=== PATIENT | male | born 1960 | race Caucasian/White ===

== ENCOUNTER 2017-11-25 12:56 | Emergency (ER) | payer MEDICAID ==
[2017-11-25] MEDS ORDERED: ALBUTEROL/IPRATROPIUM 1 VIAL SOL ONE (13:17)
[2017-11-25 13:33] VITALS: RESP 32
[2017-11-25 13:47] VITALS: BP 131/76
[2017-11-25] MEDS ORDERED: ALBUTEROL/IPRATROPIUM 1 VIAL SOL INH ONE (13:48)
[2017-11-25 14:05] VITALS: PULSE 102; TEMP 98.4; O2SAT 95
== END 2017-11-25 15:09 | disposition home or self-care (01) | DRG 206 ==
LOC: ED 12:56
DX: J95.09 Other tracheostomy complication (principal); R06.02 Shortness of breath; Z72.0 Tobacco use
CPT/HCPCS: 71045; 99283; 99284

== ENCOUNTER 2018-05-07 21:53 | Emergency (ER) | payer MEDICAID ==
[2018-05-07] MEDS ORDERED: LORAZEPAM 2 MG/ML 10ML MDV 2 MG/ML VIAL IV ONE (22:09)
[2018-05-07] MEDS ORDERED: SOLUMEDROL 125 MG/2 ML 125 MG/2 ML PDS IV ONE (22:09)
[2018-05-07] MEDS ORDERED: ALBUTEROL/IPRATROPIUM 1 VIAL SOL INH ONE (22:12)
[2018-05-07] MEDS ORDERED: ALBUTEROL/IPRATROPIUM 1 VIAL SOL ONE (22:13)
[2018-05-07] MEDS ORDERED: SOLUMEDROL 125 MG/2 ML 125 MG/2 ML PDS ONE (22:14)
[2018-05-07] MEDS ORDERED: LORAZEPAM 2 MG/ML SOL ONE (22:14)
[2018-05-07 22:22] LABS: BASOPHILS % (AUTO) 1 % (0-3); EOSINOPHILS % (AUTO) 3 % (0-9); HEMATOCRIT 42 % (39-53); HEMOGLOBIN 13.4 gm/dl (13.5-17.7); LYMPHOCYTES % (AUTO) 18.8 % (10-50); MEAN CORPUSCULAR HEMOGLOBIN 27.1 pg (27.0-32.0); MEAN CORPUSCULAR HGB CONC 31.7 gm/dl (32.0-36.0); MEAN CORPUSCULAR VOLUME 86 fL (80-100); MONOCYTES % (AUTO) 7.9 % (0-12); NEUTROPHILS % (AUTO) 68.9 % (37-80)
[2018-05-07 22:27] LABS: ABG PH 7.41 (7.35-7.45)
[2018-05-07 22:37] LABS: BLOOD UREA NITROGEN 29 mg/dl (7-18); CALCIUM 9.3 mg/dl (8.5-10.1); CARBON DIOXIDE 30.7 mEq/L (21-32); CHLORIDE 101 mMol/L (98-107); CREATININE 1.07 mg/dl (0.80-1.30); GLUCOSE 68 mg/dl (74-106); POTASSIUM 4.5 mMol/L (3.5-5.1); SODIUM 140 mMol/L (136-145); TROP I < 0.017 ng/ml (0.000-0.056)
[2018-05-07 23:16] VITALS: O2SAT 96
[2018-05-07 23:18] VITALS: BP 124/79; PULSE 98; RESP 26; TEMP 98.6
== END 2018-05-07 23:35 | disposition home or self-care (01) | DRG 204 ==
LOC: ED 21:53
DX: R06.03 Acute respiratory distress (principal)
CPT/HCPCS: 71045; 80048; 82803; 84484; 85025; 96374; 96375; 99283; J2060; J2930

== ENCOUNTER 2018-05-24 00:03 | Emergency (ER) | payer MEDICAID ==
[2018-05-24] MEDS ORDERED: ALBUTEROL/IPRATROPIUM 1 VIAL SOL INH ONE (00:05)
[2018-05-24] MEDS ORDERED: ALBUTEROL/IPRATROPIUM 1 VIAL SOL ONE (00:12)
[2018-05-24] MEDS ORDERED: LORAZEPAM 2 MG/ML SOL IV ONE ×3 (00:17→02:27)
[2018-05-24] MEDS ORDERED: LORAZEPAM 2 MG/ML SOL ONE ×2 (00:18→02:29)
[2018-05-24] MEDS: SODIUM CHLORIDE 0.9% FLUSH 10 ML SOL IV PRN ×5 (00:20→02:44)
[2018-05-24 00:41] VITALS: TEMP 98.6; O2SAT 94
[2018-05-24 01:16] LABS: BASOPHILS % (AUTO) 1 % (0-3); EOSINOPHILS % (AUTO) 1 % (0-9); HEMATOCRIT 40 % (39-53); HEMOGLOBIN 12.7 gm/dl (13.5-17.7); LYMPHOCYTES % (AUTO) 8.2 % (10-50); MEAN CORPUSCULAR HEMOGLOBIN 27.2 pg (27.0-32.0); MEAN CORPUSCULAR HGB CONC 32.1 gm/dl (32.0-36.0); MEAN CORPUSCULAR VOLUME 85 fL (80-100); MONOCYTES % (AUTO) 3.8 % (0-12); NEUTROPHILS % (AUTO) 86.4 % (37-80)
[2018-05-24 01:17] LABS: ALBUMIN 3.4 gm/dl (3.4-5.0); BILIRUBIN,TOTAL 0.6 mg/dl (0.2-1.0); CARBON DIOXIDE 25.3 mEq/L (21-32); CREATININE 1.01 mg/dl (0.80-1.30); POTASSIUM 4.8 mMol/L (3.5-5.1)
[2018-05-24 01:22] LABS: ABG PH 7.34 (7.35-7.45)
[2018-05-24 02:26] VITALS: RESP 28
[2018-05-24 02:50] VITALS: BP 133/67; PULSE 98
== END 2018-05-24 02:40 | disposition short-term general hospital (02) | DRG 206 ==
LOC: ED 00:03
DX: J95.09 Other tracheostomy complication (principal); R06.02 Shortness of breath; F41.9 Anxiety disorder, unspecified; I10 Essential (primary) hypertension; J45.909 Unspecified asthma, uncomplicated; J44.9 Chronic obstructive pulmonary disease, unspecified
CPT/HCPCS: 36415; 36600; 71045; 80053; 82803; 85025; 96374; 99283; 99284; J2060

== ENCOUNTER 2018-07-22 23:06 | Inpatient (IN) | payer MEDICAID ==
[2018-07-22] MEDS ORDERED: LORAZEPAM 2 MG/ML SOL ONE (23:27)
[2018-07-22] MEDS ORDERED: LORAZEPAM 2 MG/ML SOL IV ONE (23:30)
[2018-07-22 23:32] LABS: BASOPHILS % (AUTO) 1 % (0-3); EOSINOPHILS % (AUTO) 1 % (0-9); HEMATOCRIT 45 % (39-53); HEMOGLOBIN 13.9 gm/dl (13.5-17.7); LYMPHOCYTES % (AUTO) 13.2 % (10-50); MEAN CORPUSCULAR HEMOGLOBIN 25.4 pg (27.0-32.0); MEAN CORPUSCULAR HGB CONC 30.8 gm/dl (32.0-36.0); MEAN CORPUSCULAR VOLUME 82 fL (80-100); MONOCYTES % (AUTO) 4.7 % (0-12); NEUTROPHILS % (AUTO) 80.7 % (37-80)
[2018-07-22 23:43] LABS: ALBUMIN 3.8 gm/dl (3.4-5.0); BILIRUBIN,TOTAL 0.6 mg/dl (0.2-1.0); CARBON DIOXIDE 28.1 mEq/L (21-32); CREATININE 1.26 mg/dl (0.80-1.30); POTASSIUM 4.6 mMol/L (3.5-5.1); TOTAL PROTEIN 7.6 gm/dl (6.4-8.2)
[2018-07-22] MEDS ORDERED: ALBUTEROL/IPRATROPIUM 1 VIAL SOL ONE (23:53)
[2018-07-22] MEDS ORDERED: ALBUTEROL/IPRATROPIUM 1 VIAL SOL INH ONE (23:58)
[2018-07-23] MEDS ORDERED: ALBUTEROL/IPRATROPIUM 1 VIAL SOL INH ONE (00:01)
[2018-07-23] MEDS ORDERED: ALBUTEROL NEB SOL 2.5MG/3ML 1 VIAL SOL NEB ONE (00:02)
[2018-07-23] MEDS ORDERED: ALBUTEROL NEB SOL 2.5MG/3ML 1 VIAL SOL ONE (00:05)
[2018-07-23] MEDS ORDERED: SOLUMEDROL 125 MG/2 ML 125 MG/2 ML PDS IV ONE (00:07)
[2018-07-23] MEDS ORDERED: LEVOFLOXACIN 25 MG/ML 750 MG in SODIUM CHLORIDE 0.9% 250 ML 150 ML IV SCH (00:15)
[2018-07-23] MEDS ORDERED: SOLUMEDROL 125 MG/2 ML 125 MG/2 ML PDS ONE (00:18)
[2018-07-23] MEDS ORDERED: LEVOFLOXACIN 25 MG/ML SOL IV ONE (00:19)
[2018-07-23] MEDS ORDERED: ALBUTEROL NEB SOL 2.5MG/3ML 1 VIAL SOL NEB PRN (00:35)
[2018-07-23] MEDS ORDERED: MECLIZINE HYDROCHLORIDE 12.5 MG TAB PO PRN (00:41)
[2018-07-23] MEDS ORDERED: SENNOSIDES A AND B 8.6 MG TAB PO PRN (00:41)
[2018-07-23] MEDS: ALBUTEROL/IPRATROPIUM 1 VIAL SOL INH SCH ×3 (01:10→08:31)
[2018-07-23] MEDS ORDERED: LORAZEPAM 0.5 MG TAB ONE (01:16)
[2018-07-23] MEDS ORDERED: APAP/HYDROCODONE 1 EACH TABLET ONE (01:17)
[2018-07-23] MEDS: APAP/HYDROCODONE 1 EACH TABLET PO PRN ×2 (01:20→07:58)
[2018-07-23] MEDS: LORAZEPAM 0.5 MG TAB PO PRN ×2 (01:20→09:18)
[2018-07-23 07:15] LABS: CARBON DIOXIDE 25.1 mEq/L (21-32); CREATININE 1.28 mg/dl (0.80-1.30); POTASSIUM 5.2 mMol/L (3.5-5.1)
[2018-07-23 07:17] LABS: BASOPHILS % (AUTO) 1 % (0-3); EOSINOPHILS % (AUTO) 0 % (0-9); HEMATOCRIT 44 % (39-53); HEMOGLOBIN 13.7 gm/dl (13.5-17.7); LYMPHOCYTES % (AUTO) 4.7 % (10-50); MEAN CORPUSCULAR HEMOGLOBIN 25.8 pg (27.0-32.0); MEAN CORPUSCULAR HGB CONC 31.2 gm/dl (32.0-36.0); MEAN CORPUSCULAR VOLUME 83 fL (80-100); MONOCYTES % (AUTO) 1.1 % (0-12); NEUTROPHILS % (AUTO) 93.2 % (37-80)
[2018-07-23 07:34] LABS: APPEARANCE,URINE Clear; BILIRUBIN,URINE NEGATIVE (NEGATIVE); COLOR,URINE Dark yellow; GLUCOSE, URINE (UA) NEGATIVE (NEGATIVE); KETONES,URINE NEGATIVE (NEGATIVE); LEUKOCYTE ESTERASE ,URINE NEGATIVE (NEGATIVE); NITRATE,URINE NEGATIVE (NEGATIVE); OCCULT BLOOD,URINE 1+ (NEG-TRACE); PH,URINE 5.5; UROBILINOGEN,URINE 0.2 (0.2-1.0 EU)
[2018-07-23 07:43] LABS: BACTERIA 1+ (< 1+); CRYSTALS NEGATIVE (0-3 AVE/HPF); RBC,URINE 0-2 (0-3AV/HPF)
[2018-07-23 07:52] VITALS: BP 143/90; PULSE 115; TEMP 97.6
[2018-07-23] MEDS ORDERED: METFORMIN HYDROCHLORIDE 500 MG TAB PO SCH (08:00)
[2018-07-23] MEDS ORDERED: OMEPRAZOLE 20 MG CAPSULE PO SCH (09:00)
[2018-07-23] MEDS ORDERED: INSULIN GLARGINE, RECOMBINAN 100 U/ML SOL SC SCH (09:00)
[2018-07-23] MEDS ORDERED: PREDNISONE 5 MG TAB PO SCH (09:00)
[2018-07-23] MEDS ORDERED: DILTIAZEM XR 180 MG C24 PO SCH (09:00)
[2018-07-23] MEDS: CARBIDOPA/LEVODOPA 25/100 TAB PO SCH ×2 (10:05→12:01)
[2018-07-23] MEDS: CITALOPRAM 20 MG TAB PO SCH ×2 (10:06→12:02)
[2018-07-23] MEDS: ISOSORBIDE MONONITRATE 30 MG TER PO SCH ×2 (10:07→12:02)
[2018-07-23] MEDS: POTASSIUM CHLORIDE 10 MEQ TER PO SCH ×2 (10:11→12:02)
[2018-07-23] MEDS: METOPROLOL SUCCINATE 50 MG ER TAB PO SCH ×2 (10:12→12:03)
[2018-07-23] MEDS: FUROSEMIDE 40 MG TAB PO SCH ×2 (10:12→12:03)
[2018-07-23] MEDS: PANTOPRAZOLE SODIUM 40 MG ECT PO SCH ×2 (10:12→12:03)
[2018-07-23] MEDS ORDERED: ONDANSETRON 4 MG ODT BU PRN (10:16)
[2018-07-23] MEDS: CHOLECALCIFEROL 1,000 IU TAB PO SCH ×2 (10:26→12:03)
[2018-07-23 10:45] VITALS: RESP 24
[2018-07-23 12:07] VITALS: O2SAT 90
[2018-07-23] MEDS ORDERED: ROSUVASTATIN CALCIUM 10 MG TAB PO SCH (21:00)
== END 2018-07-23 11:20 | disposition short-term general hospital (02) | DRG 195 ==
LOC: ED 23:06 → ACUTE CARE 07-23 00:26
PROVIDERS: ADMIT Family Medicine; ATTEND Family Medicine
DX: J18.9 Pneumonia, unspecified organism (principal); Z79.4 Long term (current) use of insulin
CPT/HCPCS: 36415; 71045; 80048; 80053; 81001; 82962; 83880; 85025; 87040; 93012; 94762; J1817; J1956; J2060; J2930; J7613; A9270; A9270-GY